=== PATIENT | male | born 2000 | race Caucasian/White ===

== ENCOUNTER 2020-03-19 13:45 | Emergency (ER) | payer OTHER ==
[~2020-03-19] VITALS: Ht 175.3 cm; Wt 78.2 kg
[2020-03-19 13:46] VITALS: BP 135/88
[2020-03-19] MEDS ORDERED: AZIT500T5 PO (14:36)
== END 2020-03-19 14:40 | disposition home or self-care (01) ==
LOC: M ED 13:45
DX: J02.0 Streptococcal pharyngitis (principal); Z88.0 Allergy status to penicillin

== ENCOUNTER 2020-03-21 13:48 | Emergency (ER) | payer OTHER ==
[~2020-03-21] VITALS: Ht 175.3 cm; Wt 76.6 kg
[~2020-03-21 13:48] MED LIST: AZIT500T5 PO
[2020-03-21] MEDS ORDERED: dexameTHASONE 20MG/5ML VIAL (J1100 PER 1MG) IV ONE (14:45)
[2020-03-21] MEDS ORDERED: CLINDAMYCIN 600 MG in IV 1 EA IV ONE (14:45)
[2020-03-21 15:22] LABS: HEMATOCRIT 46.3 % (42.0-52.0); HEMOGLOBIN 15.3 g/dl (13.5-17.5); MEAN CORPUSCULAR HEMOGLOBIN 27.2 pg (27.0-33.0); MEAN CORPUSCULAR VOLUME 82.2 fl (80.0-96.0); PLATELET COUNT, AUTOMATED 149 10^3/uL (150-450); RED BLOOD COUNT 5.63 10^6/uL (4.30-6.10); WHITE BLOOD COUNT 14.4 10^3/uL (4.0-10.0)
[2020-03-21 15:41] LABS: BLOOD UREA NITROGEN 9 MG/DL (7-18); C REACTIVE PROTEIN QUANTITATIV 7.88 MG/DL (0.00-0.30); CALCIUM LEVEL 9.6 MG/DL (8.5-10.1); CARBON DIOXIDE LEVEL 28 MEQ/L (21-32); CHLORIDE LEVEL 102 MEQ/L (98-107); CREATININE FOR GFR 0.88 MG/DL (0.70-1.30); GLUCOSE, FASTING 76 MG/DL (70-100); POTASSIUM SERUM 4.1 MEQ/L (3.5-5.1); SODIUM LEVEL 137 MEQ/L (136-145)
[2020-03-21 15:42] LABS: ATYPICAL LYMPH 35 % (0-5); EOSINOPHILS 1 % (0-3); LYMPHOCYTES 23 % (16-44); MONOCYTES 2 % (0-5); NEUTROPHILS 27 % (28-66)
[2020-03-21 15:47] LABS: PLATELET ESTIMATE DECREASED (NORMAL)
[2020-03-21 15:48] LABS: ANISOCYTOSIS 1+
[2020-03-21 15:49] LABS: ERYTHROCYTE SEDIMENTATION RATE 5 mm/hr (0-15)
[2020-03-21] MEDS ORDERED: ISOVUE-370 76% 100ML VIAL As Ordered ONE (16:00)
[2020-03-21 16:16] LABS: MONO SCRN POSITIVE (NEGATIVE)
--- NOTE | 2020-03-21 16:53 | REP ---
INDICATION: r/o pertonsillar abscess. COMPARISON: None. TECHNIQUE: 75 mL of intravenous Isovue 370 is administered. Helical scanning is acquired 3 mm axial images re-formatted. Coronal and sagittal MPR images are provided. FINDINGS: Frontal and lateral digital news clerk radiographs are unremarkable. Normal epiglottis. It the visualized paranasal sinuses are clear. No bony destructive lesion is appreciated. Thyroid lobes are normal and homogeneous. Submandibular and parotid glands are normal and symmetric. Adenoidal and tonsillar soft tissues are hypertrophy diffusely and symmetrically. No mature walled off tonsillar or peritonsillar abscess is appreciated. There is a sub cm area of low-density in the right tonsillar soft tissues which could be very early abscess formation. The nasopharyngeal and hypopharyngeal airway are somewhat narrowed by the tonsillar hypertrophy which is symmetric. No vascular abnormality is seen. There is moderate shotty bilateral anterior and posterior cervical lymphadenopathy. The largest right anterior cervical lymph node measures 11 mm in short axis dimension by 20 x 25 mm. Similar sized anterior cervical lymph node is noted on the left. There are multiple enlarged lymph nodes bilaterally. Glottic and subglottic airway are unremarkable. The lung apices are clear. IMPRESSION: Bilateral tonsillar and adenoidal hypertrophy. Subcentimeter ill-defined low-density area in the right tonsil. No mature walled off abscess seen. There is moderate shotty bilateral anterior and small posterior cervical lymphadenopathy. <Electronically signed by Kwaku Lopez > 03/21/20 0528
[2020-03-21] MEDS ORDERED: PRED20TA PO (17:54)
[2020-03-21 18:17] VITALS: BP 125/65
--- NOTE | 2020-03-22 09:52 | ED PDOC ---
Post-Departure Follow-Up ft lashay hatch faxed formal report of ct neck for fu Shamika Bourgeois MD Mar 22, 2020 09:52
== END 2020-03-21 18:19 | disposition home or self-care (01) ==
LOC: M ED 13:48
DX: B27.90 Infectious mononucleosis, unspecified without complication (principal); J03.90 Acute tonsillitis, unspecified; F17.200 Nicotine dependence, unspecified, uncomplicated; Z88.0 Allergy status to penicillin
CPT/HCPCS: 70491; 80048; 83605; 85025; 85652; 86140; 86308; 96365; 96375; 99284; J1100; Q9967